=== PATIENT | male | born 1955 | race Caucasian/White ===

== ENCOUNTER 2016-12-08 20:16 | Emergency (ER) | payer SELFPAY ==
[~2016-12-08] VITALS: Ht 175.3 cm; Wt 81.6 kg
[2016-12-08 20:35] VITALS: BP 129/89
[2016-12-08] MEDS ORDERED: HYDR25CA PO (20:55)
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
== END 2016-12-08 21:18 | disposition home or self-care (01) ==
LOC: ER 20:16 → EDBD 20:16 → ER 21:18
DX: F41.9 Anxiety disorder, unspecified (principal); F32.9 Major depressive disorder, single episode, unspecified; Z88.5 Allergy status to narcotic agent
CPT/HCPCS: 99284

== ENCOUNTER → 2017-03-12 | Outpatient (CLI) | payer OTHER ==
[~2017-03-12] MED LIST: HYDR25CA PO
--- NOTE | 2017-03-12 11:51 | RAD ---
2 views of the Chest 03/12/2017 2:00 AM Indication: Preoperative. History of smoking. Chest pain. Comparison: None available Findings: There is no focal consolidation or infiltrate identified. There is no effusion or pneumothorax. The cardiomediastinal silhouette and pulmonary vasculature are within normal limits. There is compression deformity of what appears to be T12 vertebral body. Finding is age indeterminate radiographically. Correlate with focal back pain. Impression: 1.No evidence of acute cardiopulmonary process. 2. Age indeterminate T12 compression fracture.
== END | disposition home or self-care (01) ==
LOC: LAB 11:24
PROVIDERS: ATTEND Orthopaedic Surgery
DX: Z01.818 Encounter for other preprocedural examination (principal); R07.9 Chest pain, unspecified; M48.54XA Collapsed vertebra, not elsewhere classified, thoracic region, initial encounter for fracture; Z87.891 Personal history of nicotine dependence; X58.XXXD Exposure to other specified factors, subsequent encounter
CPT/HCPCS: 71020